=== PATIENT | male | born 1970 | race Caucasian/White ===

== ENCOUNTER 2023-12-06 03:38 | Emergency (ER) | payer SELFPAY | END 2023-12-06 04:09 | LOC: JD.ED 03:38 | DX: S00.81XA Abrasion of other part of head, initial encounter (principal); S20.319A Abrasion of unspecified front wall of thorax, initial encounter; F10.920 Alcohol use, unspecified with intoxication, uncomplicated; Z02.89 Encounter for other administrative examinations; X58.XXXA Exposure to other specified factors, initial encounter | CPT/HCPCS: 99282; 99284 ==